=== PATIENT | female | born 1950 | race Caucasian/White ===

== ENCOUNTER 2018-04-06 12:15 | Inpatient (IN) ==
[2018-04-06 12:28] LABS: Baso % (Auto) 0.3 % (0.0-2.0); Eos % (Auto) 0.8 % (0.0-4.0); Hematocrit 38.5 % (35.0-46.0); Hemoglobin 12.3 gm/dL (11.6-15.3); Lymph % (Auto) 35.5 % (9.0-44.0); Mean Corpuscular Hemoglobin 29.8 pg (27.0-34.0); Mean Corpuscular Volume 92.9 fL (80.0-100.0); Mean Platelet Volume 7.8 fL (7.0-11.0); Mono # (Auto) 0.3 th/mm3 (0.0-0.9); Mono % (Auto) 5.5 % (0.0-8.0); Neut # (Auto) 3.2 th/mm3 (1.8-7.7); Neut % (Auto) 57.9 % (16.0-70.0); Platelet Count 149 th/mm3 (150-450); Red Blood Count 4.14 mil/mm3 (4.00-5.30); Red Cell Distribution Width 11.8 % (11.6-17.2); White Blood Count 5.5 th/mm3 (4.0-11.0)
--- NOTE | 2018-04-06 12:35 | CT ---
EXAM DATE: 04/06/2018 12:25 PM EST AGE/SEX: 67 years / Female INDICATIONS: Stroke alert. Left facial droop. CLINICAL DATA: This is the patient's initial encounter. Patient reports that signs and symptoms have been present for 1 day and indicates a pain score of 0/10. MEDICAL/SURGICAL HISTORY: Cerebrovascular disease. None. RADIATION DOSE: 56.12 CTDI (mGy) COMPARISON: No prior exams available for comparison. TECHNIQUE: CT of the head without contrast. Using automated exposure control and adjustment of the mA and/or kV according to patient size, radiation dose was kept as low as reasonably achievable to ob tain optimal diagnostic quality images. DICOM format image data is available electronically for revi ew and comparison. FINDINGS: Cerebrum: The ventricles are normal for age. There is bilateral cortical atrophy. No evidence of mid line shift, mass lesion, hemorrhage or acute infarction. No extraaxial fluid collections are seen. T here is some encephalomalacia with some cytotoxic edema in the white matter tracts involving the righ t frontal lobe and right mid to right posterior cerebral vertex suggestive of either a subacute to ol d infarct. There are no prior studies for comparison. Posterior Fossa: The cerebellum and brainstem are intact. The 4th ventricle is midline. The cerebe llopontine angle is unremarkable. Extracranial: The visualized portion of the orbits is intact. Skull: The calvaria is intact. No evidence of skull fracture. CONCLUSION: 1. No focal or acute intracranial hemorrhage. 2. There is some encephalomalacia with some cytotoxic edema in the white matter tracts involving the right frontal lobe and right mid to right posterior cerebral vertex suggestive of a subacute to poss ibly old infarct. There are no prior studies for comparison. Recommend MRI of the brain with and with out contrast for further evaluation. Report was called by Dr. Gandara to Dr. Toney at 12:31 PM Electronically signed by: Benjamín Gandara MD Board Certified Radiologist 04/06/2018 12:34 PM EST
[2018-04-06 12:36] LABS: Chloride 106 meq/L (98-107); Potassium 3.9 meq/L (3.5-5.1); Sodium 141 meq/L (136-145)
[2018-04-06 12:38] LABS: Calcium 8.8 mg/dL (8.5-10.1)
--- NOTE | 2018-04-06 12:38 | ED ---
HPI General Chief complaint: Stroke Alert Stated complaint: Neuro symptoms Time Seen by Provider: 04/06/18 12:55 Source: patient Mode of arrival: EMS Limitations: no limitations History of Present Illness HPI narrative: This 67-year-old female is transported by [facility] as a stroke alert. She resides in a longterm and is noted to have some weakness of the left side of her face and reportedly some trouble speaking. She has a history of a previous stroke in November 2017. The previous stroke occurred when she was living in [place]. The left arm and the left leg were affected. She has been residing in a assisted living facility in [place] since January. She is not able to ambulate or use her left arm. She does go for physical therapy twice a week. She had a hysterectomy at the age of 34 and had been on hormone replacement therapy. She developed a pulmonary embolus and had been on Coumadin. She was recently changed to Xarelto and has been on Xarelto daily. About a year ago she was having some trouble driving and being very forgetful and has apparently been diagnosed with dementia. The patient herself denies any pain. Related Data Home Medications Medication Instructions Recorded Confirmed aspirin 81 mg PO DAILY 04/06/18 04/06/18 escitalopram oxalate 5 mg PO DAILY 04/06/18 04/06/18 memantine 10 mg PO BID 04/06/18 04/06/18 polyethylene glycol 3350 17 g PO DAILY 04/06/18 04/06/18 pravastatin 80 mg PO DAILY 04/06/18 04/06/18 rivaroxaban [Xarelto] 20 mg PO QPM 04/06/18 04/06/18 Allergies Allergy/AdvReac Type Severity Reaction Status Date / Time No Known Allergies Allergy Verified 04/06/18 12:19 Review of Systems ROS: all other systems reviewed are negative [facility] Family History Family History Other Osteoarthritis Social History Social History Substance History: No History of Abuse Second Hand Smoke Exposure: No Smoking Status: Never smoker How Often Do You Have a Drink Containing Alcohol: Never Recent Travel in [facility] within the Last 8 Weeks: No Recent Out of Country Travel within the Last 8 Weeks: No Exam Narrative Exam Narrative: GENERAL: Well-developed female SKIN: Focused skin assessment warm/dry. HEAD: Atraumatic. Normocephalic. EYES: Pupils equal and round. No scleral icterus. No injection or drainage. ENT: No nasal bleeding or discharge. Mucous membranes pink and moist. NECK: Trachea midline. No JVD. CARDIOVASCULAR: Regular rate and rhythm. No murmur appreciated. RESPIRATORY: No accessory muscle use. Clear to auscultation. Breath sounds equal bilaterally. GASTROINTESTINAL: Abdomen soft, non-tender, nondistended. Hepatic and splenic margins not palpable. MUSCULOSKELETAL: No obvious deformities. No clubbing. No cyanosis. No edema. NEUROLOGICAL: Awake and alert. There is drooping of the left side of the face. She is unable to lift the left arm against gravity. She is able to lift the left leg slightly against gravity but only for a few seconds. Strength on the right side seems normal. I do not find a visual field defect. Sensation appears intact PSYCHIATRIC: Appropriate mood and affect; insight and judgment normal. Course Initial Documented Vital Signs Temperature 97 F L 04/06/18 12:15 Pulse Rate 76 04/06/18 12:15 Respiratory Rate 20 04/06/18 12:15 Blood Pressure 111/59 L 04/06/18 12:15 Pulse Oximetry 97 04/06/18 12:15 Last Documented Vital Signs Temperature 97 F L 04/06/18 12:15 Pulse Rate 76 04/06/18 12:15 Respiratory Rate 20 04/06/18 12:15 Blood Pressure 111/59 L 04/06/18 12:15 Pulse Oximetry 98 04/06/18 12:48 Medical Decision Making MDM Narrative Medical decision making narrative: It appears that the new deficit is a left- sided facial weakness. At this time her speech appears clear. She is on aspirin and Xarelto so is not a candidate for TPA. CT scan does show some cytotoxic edema on the right side suggestive of subacute infarct. MR is recommended and has been ordered. CTA has been done and is negative for large vessel occlusion the patient will be admitted Medical Screen Exam Complete: Yes Emergency Medical Condition: Yes Differential Diagnosis Differential Diagnosis: Differential includes CVA, space-occupying lesion, cerebral hemorrhage Lab Data Result diagrams: 04/06/18 11:55 04/06/18 11:55 Lab Results 04/06/18 04/06/18 04/06/18 Range/Units 11:55 11:55 11:55 CBC w Diff Auto diff final WBC 5.5 (4.0-11.0) th/mm3 RBC 4.14 (4.00-5.30) mil/mm3 Hgb 12.3 (11.6-15.3) gm/dL Hct 38.5 (35.0-46.0) % MCV 92.9 (80.0-100.0) fL MCH 29.8 (27.0-34.0) pg MCHC 32.0 (32.0-36.0) % RDW 11.8 (11.6-17.2) % Plt Count 149 L (150-450) th/mm3 MPV 7.8 (7.0-11.0) fL Neut % (Auto) 57.9 (16.0-70.0) % Lymph % (Auto) 35.5 (9.0-44.0) % Lyon % (Auto) 5.5 (0.0-8.0) % Eos % (Auto) 0.8 (0.0-4.0) % Baso % (Auto) 0.3 (0.0-2.0) % Neut # (Auto) 3.2 (1.8-7.7) th/mm3 Lymph # (Auto) 2.0 (1.0-4.8) th/mm3 Lyon # (Auto) 0.3 (0.0-0.9) th/mm3 Eos # (Auto) 0.0 (0.0-0.4) th/mm3 Baso # (Auto) 0.0 (0.0-0.2) th/mm3 WBC Differential . Differential Comment . PT 11.0 (9.8-11.6) sec INR 1.1 Ratio APTT 33.4 H (23.4-31.7) sec Fibrinogen 327 (227-377) mg/dL Sodium 141 (136-145) meq/L Potassium 3.9 (3.5-5.1) meq/L Chloride 106 (98-107) meq/L Carbon Dioxide 26.4 (21.0-32.0) meq/L Anion Gap 9 (5-15) meq/L BUN 21 H (7-18) mg/dL Creatinine 1.30 H (0.50-1.00) mg/dL Estimated GFR 41 L (>89) mL/min Random Glucose 92 (74-106) mg/dL Calcium 8.8 (8.5-10.1) mg/dL Total Creatine Kinase 68 (26-192) U/L Troponin I Less than 0.02 L (0.02-0.05) ng/mL Ur Collection Type Urine Color (Yellw/Straw) Urine Clarity (Clear) Urine pH (5.0-8.5) Ur Specific Avalon (1.002-1.035) Urine Protein (Neg-Trace) mg/dL Urine Glucose (UA) (Negative) mg/dL Urine Ketones (Negative) mg/dL Urine Occult Blood (Negative) Urine Nitrate (Negative) Urine Bilirubin (Negative) Urine Urobilinogen (Less than 2) mg/dL Ur Leukocyte Esterase (Negative) Urine WBC (0-5) /hpf Urine Bacteria (None) /hpf Micro UA Comment Ur Microscopic Review Urine Culture Comments Urine Opiates Screen (Neg) Ur Barbiturates Screen (Neg) Ur Amphetamines Screen (Neg) U Benzodiazepines Scrn (Neg) Urine Cocaine Screen (Neg) U Cannabinoids Screen (Neg) 04/06/18 04/06/18 Range/Units 13:30 13:30 CBC w Diff WBC (4.0-11.0) th/mm3 RBC (4.00-5.30) mil/mm3 Hgb (11.6-15.3) gm/dL Hct (35.0-46.0) % MCV (80.0-100.0) fL MCH (27.0-34.0) pg MCHC (32.0-36.0) % RDW (11.6-17.2) % Plt Count (150-450) th/mm3 MPV (7.0-11.0) fL Neut % (Auto) (16.0-70.0) % Lymph % (Auto) (9.0-44.0) % Lyon % (Auto) (0.0-8.0) % Eos % (Auto) (0.0-4.0) % Baso % (Auto) (0.0-2.0) % Neut # (Auto) (1.8-7.7) th/mm3 Lymph # (Auto) (1.0-4.8) th/mm3 Lyon # (Auto) (0.0-0.9) th/mm3 Eos # (Auto) (0.0-0.4) th/mm3 Baso # (Auto) (0.0-0.2) th/mm3 WBC Differential Differential Comment PT (9.8-11.6) sec INR Ratio APTT (23.4-31.7) sec Fibrinogen (227-377) mg/dL Sodium (136-145) meq/L Potassium (3.5-5.1) meq/L Chloride (98-107) meq/L Carbon Dioxide (21.0-32.0) meq/L Anion Gap (5-15) meq/L BUN (7-18) mg/dL Creatinine (0.50-1.00) mg/dL Estimated GFR (>89) mL/min Random Glucose (74-106) mg/dL Calcium (8.5-10.1) mg/dL Total Creatine Kinase (26-192) U/L Troponin I (0.02-0.05) ng/mL Ur Collection Type Cath Urine Color Yellow (Yellw/Straw) Urine Clarity Clear (Clear) Urine pH 6.0 (5.0-8.5) Ur Specific Avalon Less/equal 1.005 (1.002-1.035) Urine Protein Negative (Neg-Trace) mg/dL Urine Glucose (UA) Negative (Negative) mg/dL Urine Ketones Negative (Negative) mg/dL Urine Occult Blood Negative (Negative) Urine Nitrate Positive H (Negative) Urine Bilirubin Negative (Negative) Urine Urobilinogen 0.2 (Less than 2) mg/dL Ur Leukocyte Esterase Trace H (Negative) Urine WBC 0-5 (0-5) /hpf Urine Bacteria Many H (None) /hpf Micro UA Comment Cath-culture ind Ur Microscopic Review Microscopic reviewed Urine Culture Comments Cath-cult indicated Urine Opiates Screen Neg (Neg) Ur Barbiturates Screen Neg (Neg) Ur Amphetamines Screen Neg (Neg) U Benzodiazepines Scrn Neg (Neg) Urine Cocaine Screen Neg (Neg) U Cannabinoids Screen Neg (Neg) Imaging Data Radiologist's impression: Head CT 04/06/18 12:20 CONCLUSION: 1. No focal or acute intracranial hemorrhage. 2. There is some encephalomalacia with some cytotoxic edema in the white matter tracts involving the right frontal lobe and right mid to right posterior cerebral vertex suggestive of a subacute to possibly old infarct. There are no prior studies for comparison. Recommend MRI of the brain with and without contrast for further evaluation. Report was called by Dr. Gandara to Dr. Toney at 12:31 PM Head MRI 04/06/18 12:38 CONCLUSION: 1. There is evidence of an acute infarction involving the mid to anterior right cerebral vertex measuring 3.3 x 2.6 cm. The acute infarction is surrounded by cytotoxic edema. 2. 5 mm area of restricted diffusion high along the right cerebral vertex indicating a small cortical infarct. 3. Evidence of an old infarct involving the right posterior parietal lobe. Head CTA 04/06/18 13:35 CONCLUSION: 1. Unremarkable CTA of the brain. Report was called by Dr. Gandara to Dr. Flores at 2:06 PM. Neck CTA 04/06/18 13:35 CONCLUSION: 1. Unremarkable CTA of the carotids. Report was called by Dr. Gandara to Dr. Flores at 2:20 PM. Discharge Plan Discharge Disposition Patient Disposition: ED Admit(ED Internal Use Only) Discharge Condition Condition: Fair Discharge Order Discharge Orders: ED Use Only Admit Order (Routine); Ordered 04/06/18 Ordered By: Pedro Grant Discharge Details Diagnosis: Acute CVA (cerebrovascular accident) Physicians Team ED Provider: Pedro Grant Primary Care Provider: UNKNOWN, Attending Provider: Conrad Fernandez Other Providers: Malik Mcclure Status ED Status: Admitted Patient
[2018-04-06 12:39] LABS: Anion Gap 9 meq/L (5-15); Blood Urea Nitrogen 21 mg/dL (7-18); Carbon Dioxide 26.4 meq/L (21.0-32.0); Glucose,Random 92 mg/dL (74-106)
[2018-04-06 12:42] LABS: Glomerular Filtration Rate 41 mL/min (>89)
[2018-04-06 12:43] LABS: Activated Partial Thrombo Time 33.4 sec (23.4-31.7); INR 1.1 Ratio
[2018-04-06 12:48] LABS: Creatine Kinase 68 U/L (26-192)
[2018-04-06] MEDS: Sod Chloride 0.9% Inj 1,000 ML IV.CONT SCH ×2 (13:19→15:49)
[2018-04-06] MEDS ORDERED: Acetaminophen 325 MG Tablet PO PRN (13:31)
--- NOTE | 2018-04-06 13:52 | P.HPIM ---
History of Present Illness Chief Complaint: Left Face Weakness History of Present Illness: Mrs. Sam is a 67-year-old female. At baseline she lives at an [facility]. She has a prior history of CVA with left-sided deficit. Today she came in due to an acute onset of left facial weakness which was not present the previous days. At baseline she is on Xarelto for history of pulmonary embolism. She complains of no headache. No nausea or vomiting. No vertigo. No diarrhea. No fever. No shortness of breath. No chest pain. No visual disturbances. CT scan of the brain shows evidence of right-sided cerebral edema, MRI recommended. Inpatient Certification Inpatient Certification: I certify that the inpatient services were ordered in accordance with Medicare regulations governing the order. This includes certification that hospital inpatient services are reasonable and necessary and in the case of services not specified as inpatient-only under 42 CFR 419.22(n), that they are appropriately provided as inpatient services in accordance to with the 2-midnight benchmark under 43 CFR 412.3(e) Estimated Total Length of Stay (Days): 3 Plans for Post Hospital Care: Not yet determined Review of Systems Constitutional: No fevers, no chills no night sweats, no fatigue, no weakness Eyes: No eye pain, no blurry vision, no loss of vision ENT: No sore throat, no ear pain, no rhinorrhea, left-sided face weakness Cardiovascular: No chest pain, no tachycardia, no palpitations, no syncope Respiratory: No wheezing, no cough, no shortness of breath Gastrointestinal: No abdominal pain, no black tarry stools, no bright red blood per rectum, no vomiting, no diarrhea Musculoskeletal: No joint pain, no muscle cramps, no stiffness Integumentary: No rash, no ulcers, no drainage Neurologic: No sensory loss, no loss of motor function, no dizziness Psychiatric: No behavioral changes, no hallucinations, no suicidal ideations [facility] Medical History Medical History Anxiety (Acute) CVA (cerebral vascular accident) (Acute) Dementia (Acute) H/O: hysterectomy (Acute) Hypotension (Acute) Left-sided weakness (Acute) Muscle weakness (Acute) Family History Family History Other Osteoarthritis Social History Social History Substance History: No History of Abuse Second Hand Smoke Exposure: No Smoking Status: Never smoker How Often Do You Have a Drink Containing Alcohol: Never Recent Travel in [facility] within the Last 8 Weeks: No Recent Out of Country Travel within the Last 8 Weeks: No Immunization History Tetanus Immunization: Unsure Medications and Allergies Allergies Allergy/AdvReac Type Severity Reaction Status Date / Time No Known Allergies Allergy Verified 04/06/18 12:19 Home Medications Medication Instructions Recorded Confirmed Type aspirin 81 mg PO DAILY 04/06/18 04/06/18 History escitalopram oxalate 5 mg PO DAILY 04/06/18 04/06/18 History memantine 10 mg PO BID 04/06/18 04/06/18 History polyethylene glycol 3350 17 g PO DAILY 04/06/18 04/06/18 History pravastatin 80 mg PO DAILY 04/06/18 04/06/18 History rivaroxaban [Xarelto] 20 mg PO QPM 04/06/18 04/06/18 History Active Medications: Active Medications Acetaminophen (Tylenol) 650 mg PO Q4H PRN PRN Reason: Temp > 100.4 Al Hydroxide/Mg Hydroxide (Milk Of Magnashish Liq) 30 ml PO Q12H PRN PRN Reason: Mild Constipation Sodium Chloride (Ns Inj) 1,000 mls @ 70 mls/hr IV.CONT .[id number] [facility] Last Admin: 04/06/18 13:19 Dose: 70 mls/hr Sodium Chloride (Ns Inj) 1,000 mls @ 80 mls/hr IV.CONT .[id number] [facility] Ondansetron HCl (Zofran Inj) 4 mg IV.PUSH Q6H PRN PRN Reason: NAUSEA OR VOMITING Sodium Chloride (Ns Flush) 2 ml IV.FLUSH BID [facility] Sodium Chloride (Ns Flush) 2 ml IV.FLUSH PRN PRN PRN Reason: FLUSH AFTER USING IV ACCESS Physical Exam Vital signs: Vital Signs 04/06/18 12:15 04/06/18 12:48 Temperature 97 F L Pulse Rate 76 Respiratory Rate 20 Blood Pressure 111/59 L Pulse Oximetry 97 98 Intake & Output 04/05/18 04/06/18 04/06/18 18:59 06:59 18:59 Weight 53.8 kg Narrative: GENERAL: NAD, A&Ox3 HEAD: Normocephalic. NECK: Supple, trachea midline. No lymphadenopathy. EYES: No scleral icterus. No injection or drainage. CARDIOVASCULAR: Regular rate and rhythm without murmurs, gallops, or rubs. RESPIRATORY: Breath sounds equal bilaterally. No accessory muscle use. GASTROINTESTINAL: Abdomen soft, non-tender, nondistended. MUSCULOSKELETAL: No cyanosis, or edema. SKIN: Warm and dry. NEURO: Partial left-sided hemiplegia. Left face droop. Results Labs CBC & Chem 7: 04/06/18 11:55 04/06/18 11:[address] 04/06/18 12:20 CONCLUSION: 1. No focal or acute intracranial hemorrhage. 2. There is some encephalomalacia with some cytotoxic edema in the white matter tracts involving the right frontal lobe and right mid to right posterior cerebral vertex suggestive of a subacute to possibly old infarct. There are no prior studies for comparison. Recommend MRI of the brain with and without contrast for further evaluation. Report was called by Dr. Gandara to Dr. Toney at 12:31 PM Shannon VTE Risk Assessment Caprini VTE Risk Assessment: Moderate/High Risk (score >= 2) Caprini Risk Assessment Model: Point Value = 1 Point Value = 2 Point Value = 3 Point Value = 5 Age 41-60 Minor surgery BMI > 25 kg/m2 Swollen legs Varicose veins or History of unexplained or recurrent spontaneous Oral contraceptives or hormone replacement Sepsis (< 1 month) Serious lung disease, including pneumonia (< 1 month) Abnormal pulmonary function Acute myocardial infarction Congestive heart failure (< 1 month) History of inflammatory bowel disease Medical patient at bed rest Age 61-74 Arthroscopic surgery Major open surgery (> 45 min) Laparoscopic surgery (> 45 min) Malignancy Confined to bed (> 72 hours) Immobilizing plaster cast Central venous access Age >= 75 History of VTE Family history of VTE Factor V Leiden Prothrombin [id number] Lupus anticoagulant Anticardiolipin antibodies Elevated serum homocysteine Heparin-induced thrombocytopenia Other congenital or acquired thrombophilia Stroke (< 1 month) Elective arthroplasty Hip, pelvis, or leg fracture Acute spinal cord injury (< 1 month) Prophylaxis Regimen: Total Risk Factor Score Risk Level Prophylaxis Regimen 0-1 Low Early ambulation 2 Moderate Order ONE of the following: *Sequential Compression Device (SCD) *Heparin 5000 units SQ BID 3-4 Higher Order ONE of the following medications: *Heparin 5000 units SQ TID *Enoxaparin/Lovenox 40 mg SQ daily (WT < 150 kg, CrCl > 30 mL/min) *Enoxaparin/Lovenox 30 mg SQ daily (WT < 150 kg, CrCl > 10-29 mL/min) *Enoxaparin/Lovenox 30 mg SQ BID (WT < 150 kg, CrCl > 30 mL/min) AND/OR *Sequential Compression Device (SCD) 5 or more Highest Order ONE of the following medications: *Heparin 5000 units SQ TID (Preferred with Epidurals) *Enoxaparin/Lovenox 40 mg SQ daily (WT < 150 kg, CrCl > 30 mL/min) *Enoxaparin/Lovenox 30 mg SQ daily (WT < 150 kg, CrCl > 10-29 mL/min) *Enoxaparin/Lovenox 30 mg SQ BID (WT < 150 kg, CrCl > 30 mL/min) AND *Sequential Compression Device (SCD) Assessment and Plan Plan 67-year-old female admitted secondary to acute onset of left facial weakness with evidence for CVA on CT scan. Acute CVA Suspected based on edema on CT scan Neurology consulted Obtain MRI Follow neurologic status Speech therapy evaluation Swallow function evaluation Physical therapy Occupational Therapy Hypercoagulability History of pulmonary embolism No evidence of bleed/hemorrhage on CT of brain Xarelto continued Hyperlipidemia Continue present treatment Follow as an outpatient Dementia Memantine continued Supportive care DVT prophylaxis Xarelto
[2018-04-06 13:58] LABS: Bilirubin,Urine Negative (Negative); Clarity,Urine Clear (Clear); Color,Urine Yellow (Yellw/Straw); Glucose,Urine (UA) Negative (Negative); Leukocyte Esterase,Urine Trace (Negative); Nitrite,Urine Positive (Negative); Specific Gravity,Urine Less/Equal 1.005 (1.002-1.035); Urobilinogen,Urine 0.2 mg/dL (Less than 2)
--- NOTE | 2018-04-06 14:09 | CT ---
EXAM DATE: 04/06/2018 2:02 PM EST AGE/SEX: 67 years / Female INDICATIONS: Stroke alert. Left facial droop. CLINICAL DATA: This is the patient's initial encounter. Patient reports that signs and symptoms have been present for 1 day and indicates a pain score of 0/10. MEDICAL/SURGICAL HISTORY: Cerebrovascular disease. Hysterectomy. RADIATION DOSE: 42.78 CTDI (mGy) ; Combined studies COMPARISON: No prior exams available for comparison. TECHNIQUE: Volumetric scanning was performed using a multi-row detector CT scanner during bolus infu justo of 85 ml Visipaque 320 (iodixanol) nonionic water-soluble contrast as a cumulative dose for mul tiple exams. The data was post processed with a variety of visualization algorithms including full volume maximum intensity projection, multi-planar sliding thin slab reformation, curved planar reform ation, and surface rendering techniques. Using automated exposure control and adjustment of the mA a nd/or kV according to patient size, radiation dose was kept as low as reasonably achievable to obtain optimal diagnostic quality images. DICOM format image data is available electronically for review a nd comparison. FINDINGS: There is excellent visualization of the major intracranial arteries out to the second-order branch ve ssels. There is no evidence for aneurysm, vessel truncation or stenosis, and no evidence for vascula r malformation. There are bilateral patent posterior communicating arteries. CONCLUSION: 1. Unremarkable CTA of the brain. Report was called by Dr. Gandara to Dr. Flores at 2:06 PM. Electronically signed by: Benjamín Gandara MD Board Certified Radiologist 04/06/2018 2:08 PM EST
--- NOTE | 2018-04-06 14:10 | ECG ---
Date Performed: 04/06/2018 Time Performed: 12:48:21 PTAGE: 67 years EKG: Sinus rhythm LOW QRS VOLTAGE IN EXTREMITY LEADS BORDERLINE ECG NO PREVIOUS TRACING DOCTOR: Santiago Urbina Interpretating Date/Time 04/06/2018 14:10:20
[2018-04-06] MEDS ORDERED: Gadobutrol PF 7.5 MMOL/7.5 ML Vial (for RAD) IV.SIG ONE (14:19)
--- NOTE | 2018-04-06 14:24 | CT ---
EXAM DATE: 04/06/2018 2:14 PM EST AGE/SEX: 67 years / Female INDICATIONS: Stroke alert. Left facial droop. CLINICAL DATA: This is the patient's initial encounter. Patient reports that signs and symptoms have been present for 1 day and indicates a pain score of 0/10. MEDICAL/SURGICAL HISTORY: Cerebrovascular disease. Hysterectomy. RADIATION DOSE: 42.78 CTDI (mGy) COMPARISON: No prior exams available for comparison. TECHNIQUE: Volumetric scanning was performed using a multirow detector CT scanner during bolus infus ion of 85 ml Visipaque 320 (iodixanol) nonionic water-soluble contrast as a cumulative dose for mult iple exams. The data was postprocessed with a variety of visualization algorithms including full-vo lume maximum intensity projection, multiplanar sliding thin-slab reformation, curved-planar reformati on, and surface-rendering techniques. Using automated exposure control and adjustment of the mA and/ or kV according to patient size, radiation dose was kept as low as reasonably achievable to obtain op timal diagnostic quality images. DICOM format image data is available electronically for review and comparison. Percent stenosis is calculated using the diameter of the stenotic region over the diameter of the nor mal distal internal carotid artery. FINDINGS: Aortic Arch: There is a three-vessel origin of the great vessels from the aorta. No evidence of ost ial narrowing Right Carotid: The common carotid artery is intact. The carotid bulb has a normal configuration wit hout ulceration or narrowing. The internal carotid artery lumen is smooth without stenosis. The ext ernal carotid artery is intact. Left Carotid: The common carotid artery is intact. The carotid bulb has a normal configuration with out ulceration or narrowing. The internal carotid artery lumen is smooth without stenosis. The exte rnal carotid artery is intact. Vertebrals: The vertebral arteries are patent bilaterally. The left vertebral artery is dominant.. No stenotic lesions are seen. CONCLUSION: 1. Unremarkable CTA of the carotids. Report was called by Dr. Gandara to Dr. Flores at 2:20 PM. Electronically signed by: Benjamín Gandara MD Board Certified Radiologist 04/06/2018 2:23 PM EST
[2018-04-06 14:27] LABS: WBC,Urine 0-5 /hpf (0-5)
[2018-04-06 14:28] LABS: Bacteria,Urine Many /hpf
[2018-04-06 14:35] LABS: Amphetamine Screen,Urine Neg (Neg); Barbiturate Screen,Urine Neg (Neg); Cannabinoid Screen,Urine Neg (Neg); Cocaine Screen,Urine Neg (Neg)
--- NOTE | 2018-04-06 14:38 | MR ---
EXAM DATE: 04/06/2018 2:26 PM EST AGE/SEX: 67 years / Female INDICATIONS: Stroke. Left sided weakness. CLINICAL DATA: This is the patient's initial encounter. Patient reports that signs and symptoms have been present for 1 day and indicates a pain score of 8/10. MEDICAL/SURGICAL HISTORY: . Cancer behind the eyes. Hysterectomy. Eye sx. COMPARISON: [facility], CT STROKE ALERT HEAD WO CON, 04/06/2018. . TECHNIQUE: Multiplanar, multisequence examination of the brain was performed without and with 5 ml Ga davist (gadobutrol) contrast as a single exam dose. FINDINGS: Cerebrum: The ventricles are normal for age. No evidence of midline shift, mass lesion, hemorrhage. There is evidence of an acute infarct involving the mid to anterior right cerebral vertex. The area of restricted diffusion measures 3.3 x 2.6 cm. There is surrounding cytotoxic edema in this location characteristic of an acute infarct. There is evidence of an old infarct involving the right posterior parietal lobe. No extraaxial fluid collections are seen. The pituitary gland and suprasellar cister n are normal in configuration. White Matter: Moderate chronic white matter changes are noted bilaterally characteristic of ischemic demyelinization. There is cytotoxic edema surrounding the area of acute infarction on the right side . There is an old area of infarct involving the posterior right parietal lobe. Posterior Fossa: The cerebellum and brainstem are intact. The 4th ventricle is midline. The cerebel lopontine angle is unremarkable. The cerebellar tonsils are normal in position. Diffusion Imaging: There is evidence of restricted diffusion involving the mid to anterior right cer ebral vertex measuring 3.3 x 2.6 cm characteristic of an acute infarct. There is a 5 mm area of restr icted diffusion high along the right cerebral vertex indicating a small cortical infarct. These areas are surrounded by cytotoxic edema. Extracranial: The visualized portions of the orbits and paranasal sinuses are unremarkable. Post Contrast: No abnormal areas of parenchymal or dural enhancement. No evidence of blood-brain ba rrier breakdown. No enhancing mass occupying lesions. CONCLUSION: 1. There is evidence of an acute infarction involving the mid to anterior right cerebral vertex leopoldo uring 3.3 x 2.6 cm. The acute infarction is surrounded by cytotoxic edema. 2. 5 mm area of restricted diffusion high along the right cerebral vertex indicating a small cortica l infarct. 3. Evidence of an old infarct involving the right posterior parietal lobe. Electronically signed by: Benjamín Gandara MD Board Certified Radiologist 04/06/2018 2:36 PM EST
[2018-04-06 15:00] LABS: Opiate Screen,Urine Neg (Neg)
--- NOTE | 2018-04-06 18:59 | P.CONNEU ---
History of Present Illness Service: Neurology Primary Care Provider: UNKNOWN Chief Complaint: Left Face Weakness History of Present Illness: 67-year-old female with a history of previous right hemispheric stroke and left spastic hemiparesis admitted for recurrent stroke. Noted to have left facial weakness speech changes at her facility. Is on Xarelto. Therefore not IV TPA candidate. Patient states she lives alone close to [facility] for meals use a wheelchair to get around. States her brother lives close by. She has 2 cats but does not have any children. Denies any headache fever night sweats or chills or any head or neck trauma or any vision loss. Review of Systems All other systems reviewed negative except as stated in HPI PMFSH - History History Provided By: Patient - Medical History Medical History: Medical History (Last Reviewed 04/06/18 @ 14:05 by Crystal Montero [employer]eter, HAND CEMENTER) Anxiety CVA (cerebral vascular accident) Dementia H/O: hysterectomy Hypotension Left-sided weakness Muscle weakness - Family History Family History: Family History Other Osteoarthritis - Tobacco History Second Hand Smoke Exposure: No Tobacco Use In Past 30 Days: No Smoking Status: Never smoker - Alcohol History How Often Do You Have a Drink Containing Alcohol: Never - Substance Use History Substance History: No History of Abuse - Travel History Recent Travel in the [place] Within the Last 8 Weeks: No Recent Travel Out of the Country Within the Last 8 Weeks: No - Immunization History Tetanus Immunization: Unsure Hx Influenza Vaccine This Season: No Medications and Allergies Active Medications: Active Medications Acetaminophen (Tylenol) 650 mg PO Q4H PRN PRN Reason: Temp > 100.4 Al Hydroxide/Mg Hydroxide (Milk Of Magnashish Liq) 30 ml PO Q12H PRN PRN Reason: Mild Constipation Aspirin (Ecotrin) 81 mg PO DAILY [facility] Escitalopram Oxalate (Lexapro) 5 mg PO DAILY [facility] Sodium Chloride (Ns Inj) 1,000 mls @ 70 mls/hr IV.CONT .[id number] BAUDILIO Last Admin: 04/06/18 13:19 Dose: 70 mls/hr Sodium Chloride (Ns Inj) 1,000 mls @ 80 mls/hr IV.CONT .[id number] BAUDILIO Last Admin: 04/06/18 15:49 Dose: 80 mls/hr Influenza Virus Vaccine (Fluarix (Quad) Vaccine Inj) 0.5 ml IM .ONCE ONE Stop: 04/06/18 20:01 Memantine (Namenda) 10 mg PO BID [facility]UD[facility]IO Miscellaneous (Pill Splitter) 1 each OTHER UNSCH PRN PRN Reason: PILL SPLITTING Ondansetron HCl (Zofran Inj) 4 mg IV.PUSH Q6H PRN PRN Reason: NAUSEA OR VOMITING Polyethylene Glycol (Miralax) 17 gm PO DAILY [facility]UD[facility] Pravastatin Sodium (Pravachol) 80 mg PO DAILY [facility]UD[facility] Rivaroxaban (Xarelto) 20 mg PO HS [facility] Sodium Chloride (Ns Flush) 2 ml IV.FLUSH BID BAUDILIO Sodium Chloride (Ns Flush) 2 ml IV.FLUSH PRN PRN PRN Reason: FLUSH AFTER USING IV ACCESS Allergies Allergy/AdvReac Type Severity Reaction Status Date / Time No Known Allergies Allergy Verified 04/06/18 12:19 Home Medications Medication Instructions Recorded Confirmed Type aspirin 81 mg PO DAILY 04/06/18 04/06/18 History escitalopram oxalate 5 mg PO DAILY 04/06/18 04/06/18 History memantine 10 mg PO BID 04/06/18 04/06/18 History polyethylene glycol 3350 17 g PO DAILY 04/06/18 04/06/18 History pravastatin 80 mg PO DAILY 04/06/18 04/06/18 History rivaroxaban [Xarelto] 20 mg PO QPM 04/06/18 04/06/18 History Exam Vital signs: Vital Signs 04/06/18 12:15 04/06/18 12:48 04/06/18 16:00 Temperature 97 F L 97.9 F Pulse Rate 76 69 Respiratory Rate 20 14 Blood Pressure 111/59 L 136/69 Pulse Oximetry 97 98 98 Intake & Output 04/05/18 04/06/18 04/06/18 18:59 06:59 18:59 Intake Total 300 / 300 Balance 300 / 300 Weight 53.8 kg Intake: Oral 300 / 300 Narrative: GENERAL: in NAD, SKIN: Warm and dry. HEAD: Atraumatic. Normocephalic. EYES: Pupils equal and round. No scleral icterus. ENT: No nasal bleeding or discharge. Mucous membranes pink and moist. NECK: Trachea midline. No JVD. CARDIOVASCULAR: Regular rate and rhythm. RESPIRATORY: No accessory muscle use. GASTROINTESTINAL: Abdomen soft, non-tender, nondistended. MUSCULOSKELETAL: Extremities without clubbing, cyanosis, or edema. No obvious deformities. NEUROLOGICAL: Awake and alert. Oriented 2-3, knew the name of the current president, follows once a motor request, articulate speech, visual colon full left lower facial weakness. Left spastic hemiparesis left upper extremity to 3 out of 5, left lower extremity 2-3 out of 5 able to slightly raise to gravity PSYCHIATRIC: Appropriate mood and affect; insight and judgment normal. - Constitutional no acute distress - Routine HEENT Exam Head: Present: normocephalic Eye: Present: EOMI Results - Labs CBC & Chem 7: 04/06/18 11:55 04/06/18 11:55 Labs: Laboratory Results - last 24 hr 04/06/18 04/06/18 04/06/18 11:55 11:55 11:55 CBC w Diff Auto diff final WBC 5.5 RBC 4.14 Hgb 12.3 Hct 38.5 MCV 92.9 MCH 29.8 MCHC 32.0 RDW 11.8 Plt Count 149 L MPV 7.8 Neut % (Auto) 57.9 Lymph % (Auto) 35.5 [place] % (Auto) 5.5 Eos % (Auto) 0.8 Baso % (Auto) 0.3 Neut # (Auto) 3.2 Lymph # (Auto) 2.0 [place] # (Auto) 0.3 Eos # (Auto) 0.0 Baso # (Auto) 0.0 WBC Differential . Differential Comment . PT 11.0 INR 1.1 APTT 33.4 H Fibrinogen 327 Sodium 141 Potassium 3.9 Chloride 106 Carbon Dioxide 26.4 Anion Gap 9 BUN 21 H Creatinine 1.30 H Estimated GFR 41 L Random Glucose 92 Calcium 8.8 Total Creatine Kinase 68 Troponin I Less than 0.02 L Ur Collection Type Urine Color Urine Clarity Urine pH Ur Specific [place] Urine Protein Urine Glucose (UA) Urine Ketones Urine Occult Blood Urine Nitrate Urine Bilirubin Urine Urobilinogen Ur Leukocyte Esterase Urine WBC Urine Bacteria Micro UA Comment Ur Microscopic Review Urine Culture Comments Urine Opiates Screen Ur Barbiturates Screen Ur Amphetamines Screen U Benzodiazepines Scrn Urine Cocaine Screen U Cannabinoids Screen Blood Type Antibody Screen Ab Screen Tube Method Direct Antiglob Test 04/06/18 04/06/18 04/06/18 13:13 13:30 13:30 CBC w Diff WBC RBC Hgb Hct MCV MCH MCHC RDW Plt Count MPV Neut % (Auto) Lymph % (Auto) [place] % (Auto) Eos % (Auto) Baso % (Auto) Neut # (Auto) Lymph # (Auto) [place] # (Auto) Eos # (Auto) Baso # (Auto) WBC Differential Differential Comment PT INR APTT Fibrinogen Sodium Potassium Chloride Carbon Dioxide Anion Gap BUN Creatinine Estimated GFR Random Glucose Calcium Total Creatine Kinase Troponin I Ur Collection Type Cath Urine Color Yellow Urine Clarity Clear Urine pH 6.0 Ur Specific [place] Less/equal 1.005 Urine Protein Negative Urine Glucose (UA) Negative Urine Ketones Negative Urine Occult Blood Negative Urine Nitrate Positive H Urine Bilirubin Negative Urine Urobilinogen 0.2 Ur Leukocyte Esterase Trace H Urine WBC 0-5 Urine Bacteria Many H Micro UA Comment Cath-culture ind Ur Microscopic Review Microscopic reviewed Urine Culture Comments Cath-cult indicated Urine Opiates Screen Neg Ur Barbiturates Screen Neg Ur Amphetamines Screen Neg U Benzodiazepines Scrn Neg Urine Cocaine Screen Neg U Cannabinoids Screen Neg Blood Type B Positive Antibody Screen Positive Ab Screen Tube Method Positive H Direct Antiglob Test Negative - Imaging Impressions Head CT 04/06/18 12:20 CONCLUSION: 1. No focal or acute intracranial hemorrhage. 2. There is some encephalomalacia with some cytotoxic edema in the white matter tracts involving the right frontal lobe and right mid to right posterior cerebral vertex suggestive of a subacute to possibly old infarct. There are no prior studies for comparison. Recommend MRI of the brain with and without contrast for further evaluation. Report was called by Dr. Gandara to Dr. Toney at 12:31 PM Head MRI 04/06/18 12:38 CONCLUSION: 1. There is evidence of an acute infarction involving the mid to anterior right cerebral vertex measuring 3.3 x 2.6 cm. The acute infarction is surrounded by cytotoxic edema. 2. 5 mm area of restricted diffusion high along the right cerebral vertex indicating a small cortical infarct. 3. Evidence of an old infarct involving the right posterior parietal lobe. Head CTA 04/06/18 13:35 CONCLUSION: 1. Unremarkable CTA of the brain. Report was called by Dr. Gandara to Dr. Flores at 2:06 PM. Neck CTA 04/06/18 13:35 CONCLUSION: 1. Unremarkable CTA of the carotids. Report was called by Dr. Gandara to Dr. Flores at 2:20 PM. Review/Management - Diagnosis (1) Acute right MCA stroke Code(s): I63.511 - Cerebral infarction due to unspecified occlusion or stenosis of right middle cerebral artery Status: Acute Current Visit: Yes (2) Pulmonary embolus Code(s): I26.99 - Other pulmonary embolism without acute cor pulmonale Status : Acute Current Visit: Yes (3) Anxiety Code(s): F41.9 - Anxiety disorder, unspecified Status: Acute Current Visit: Yes (4) Impairment of cognitive function Code(s): R41.89 - Other symptoms and signs involving cognitive functions and awareness Status: Acute Current Visit: Yes (5) Chronic ischemic right MCA stroke Code(s): I69.30 - Unspecified sequelae of cerebral infarction Status: Acute Current Visit: Yes - Review/Management Plan: Acute on chronic right hemispheric stroke Moderate size previous right MCA stroke in addition to chronic left medial temporal region infarct. CT brain carotids negative for any vaso-occlusive disease. Therefore probably an embolic etiology. Recurrent stroke on Xarelto Recommendations Change oral anticoagulant to Pradaxa or Eliquis or Coumadin. Adjust for renal clearance Therapy Follow-up 2D echo Follow-up lipid panel Discharge planning once medically cleared
[2018-04-06] MEDS ORDERED: Influenza (Quadrivalent) Vaccine 0.5 ML Syringe IM ONE (20:00)
[2018-04-06] MEDS ORDERED: Rivaroxaban 20 MG Tablet PO SCH (21:00)
[2018-04-07] MEDS: Sod Chloride 0.9% Inj 1,000 ML IV.CONT SCH ×4 (02:16→16:56)
[2018-04-07 06:42] LABS: Baso % (Auto) 0.1 % (0.0-2.0); Eos % (Auto) 0.7 % (0.0-4.0); Hematocrit 38.2 % (35.0-46.0); Hemoglobin 12.4 gm/dL (11.6-15.3); Lymph # (Auto) 1.9 th/mm3 (1.0-4.8); Lymph % (Auto) 28.9 % (9.0-44.0); Mean Corpuscular HGB Conc 32.5 % (32.0-36.0); Mean Corpuscular Volume 92.4 fL (80.0-100.0); Mean Platelet Volume 7.7 fL (7.0-11.0); Mono # (Auto) 0.3 th/mm3 (0.0-0.9); Mono % (Auto) 4.4 % (0.0-8.0); Neut # (Auto) 4.4 th/mm3 (1.8-7.7); Neut % (Auto) 65.9 % (16.0-70.0); Platelet Count 140 th/mm3 (150-450); Red Blood Count 4.14 mil/mm3 (4.00-5.30); Red Cell Distribution Width 11.5 % (11.6-17.2); White Blood Count 6.6 th/mm3 (4.0-11.0)
[2018-04-07 07:00] LABS: Chloride 109 meq/L (98-107); Potassium 4.1 meq/L (3.5-5.1); Sodium 143 meq/L (136-145)
[2018-04-07 07:05] LABS: Calcium 8.9 mg/dL (8.5-10.1)
[2018-04-07 07:06] LABS: Albumin 3.5 g/dL (3.4-5.0); Anion Gap 4 meq/L (5-15); Blood Urea Nitrogen 18 mg/dL (7-18); Carbon Dioxide 29.7 meq/L (21.0-32.0); Glucose,Random 94 mg/dL (74-106)
[2018-04-07 07:09] LABS: Alanine Aminotransferase 13 U/L (10-53); Aspartate Aminotransferase 17 U/L (15-37); Glomerular Filtration Rate 60 mL/min (>89)
[2018-04-07 07:11] LABS: Total Protein 6.2 g/dL (6.4-8.2)
[2018-04-07 07:12] LABS: Alkaline Phosphatase 103 U/L (45-117)
--- NOTE | 2018-04-07 08:58 | MB ---
cc: Ravindra Flores MD, PhD DATE: 04/07/2018 TELENEUROLOGY CONSULT HISTORY OF PRESENT ILLNESS: This is a 67-year-old female who has a history of previous stroke resulting in a left hemiplegia, who [facility]. Shortly before presentation to the hospital, she developed left facial weakness with some difficulty talking with slurred speech. She has a previous stroke while up in [place], causing severe left arm and left leg weakness, which has not changed. The only new finding was left facial weakness and slurred speech. The patient has been on Xarelto daily and took her last dose the evening before admission. She presented to the [facility] as a stroke alert. I evaluated the patient via the teleneurology system. MEDICATIONS ON ADMISSION: Xarelto 20 mg daily, pravastatin 80 mg daily, polyethylene glycol, memantine 10 mg b.i.d., Lexapro 5 mg daily, aspirin 81 mg daily. PHYSICAL EXAMINATION: Conducted via the teleneurology system: VITAL SIGNS: Blood pressure was 124/68, pulse 70, respirations 20. She was afebrile. NEUROLOGIC: Higher cortical function shows the patient to be alert. Her speech appeared to be within normal limits, although she complained it was dysarthric. Cranial nerves reveal a left upper motor neuron seventh palsy, but otherwise cranial nerves were intact. Motor exam: She had a dense left hemiparesis with essentially complete weakness of the left arm and left leg. She was unable to lift these off the bed, but was able to briskly move the right side well. Her sensation was diminished in the left thigh to soft touch. DIAGNOSTIC DATA: CT scan of the brain reveals a chronic right of subacute with cytotoxic edema. present. CT scan of the brain was obtained and was within normal limits. CT angiogram of the neck was also obtained and also showed a sign of significant carotid artery stenosis. LABORATORY DATA: Serum glucose was 92. Sodium 141, potassium 3.9, chloride 106, CO2 26, BUN 20, creatinine 1.3, GFR 41, calcium 8.8. CBC: White count 5500, hemoglobin 12.3, hematocrit 38.5, platelet count 149,000. PT 11, INR 1.1, aPTT 33.4. IMPRESSION: New acute right middle cerebral artery distribution stroke superimposed on an old right middle cerebral artery infarction. The patient is not a candidate for IV TPA because she was on Xarelto. Further evaluation with CT angiography did not reveal any evidence for large vessel occlusion, so she was not a candidate for intervention. Recommend further evaluation with , close neuro checks and close blood pressure monitoring. I also recommend general neurology consultation for further recommendations. Ravindra Flores MD, PhD DESTINY/madeline/rosio , 05:16 AM , 05:27 AM
[2018-04-07] MEDS: Escitalopram 10 MG Tablet PO SCH (09:41)
[2018-04-07] MEDS: Polyethylene Glycol 3350 17 GM Packet PO SCH (09:44)
[2018-04-07 10:46] LABS: Chol/HDL Ratio 2.08 Ratio; HDL Cholesterol 65.3 mg/dL (40.0-60.0)
--- NOTE | 2018-04-07 11:28 | ECHRPT ---
Indication: Atrial Fib and Flutter CONCLUSIONS Normal left ventricular size. Wall thickness is measured at the upper limits of normal. The left ventricular systolic function is normal with an estimated ejection fraction in the range of 55-60%. No regional wall motion abnormalities are present. Moderate mitral annular calcification. Trace mitral valve regurgitation. There is trace to mild tricuspid valve regurgitation. The estimated pulmonary arterial pressure is 33 mmHg. BP: / HR: Rhythm: MEASUREMENTS (Male / Female) Normal Values Technical Quality:Fair 2D ECHO LV Diastolic Diameter PLAX 4.5 cm 4.2 - 5.9 / 3.9 - 5.3 cm LV Systolic Diameter PLAX 3.2 cm IVS Diastolic Thickness 0.9 cm 0.6 - 1.0 / 0.6 - 0.9 cm LVPW Diastolic Thickness 0.8 cm 0.6 - 1.0 / 0.6 - 0.9 cm LV Relative Wall Thickness 0.4 RV Internal Dim ED PLAX 2.1 cm LVOT Diameter 1.8 cm Aortic Root Diameter 2.7 cm LA Systolic Diameter LX 3.0 cm 3.0 - 4.0 / 2.7 - 3.8 cm DOPPLER AV Peak Velocity 132.0 cm/s AV Peak Gradient 7.0 mmHg LVOT Peak Velocity 76.5 cm/s LVOT Peak Gradient 2.3 mmHg AV Area Cont Eq pk 1.5 cm Mitral E Point Velocity 77.0 cm/s Mitral A Point Velocity 94.8 cm/s Mitral E to A Ratio 0.8 LV E' Lateral Velocity 9.9 cm/s Mitral E to LV E' Lateral Ratio 7.7 LV E' Septal Velocity 8.5 cm/s Mitral E to LV E' Septal Ratio 9.1 TR Peak Velocity 242.0 cm/s TR Peak Gradient 23.4 mmHg Right Atrial Pressure 10.0 mmHg Pulmonary Artery Systolic Pressu 33.4 mmHg Right Ventricular Systolic Press 33.4 mmHg PV Peak Velocity 89.6 cm/s PV Peak Gradient 3.2 mmHg FINDINGS LEFT VENTRICLE Normal left ventricular size. Wall thickness is measured at the upper limits of normal. The left ventricular systolic function is normal with an estimated ejection fraction in the range of 55-60%. No regional wall motion abnormalities are present. RIGHT VENTRICLE Normal right ventricular size and systolic function. LEFT ATRIUM The left atrial size is normal. RIGHT ATRIUM The right atrial size is normal. ATRIAL SEPTUM Normal atrial septal thickness without atrial level shunting by limited color doppler interrogation. AORTA The aortic root and proximal ascending aorta are normal in size on limited imaging. MITRAL VALVE Moderate mitral annular calcification. Trace mitral valve regurgitation. AORTIC VALVE Trileaflet aortic valve. No aortic valve stenosis or regurgitation. TRICUSPID VALVE There is trace to mild tricuspid valve regurgitation. The estimated pulmonary arterial pressure is 33 mmHg. PULMONARY VALVE No pulmonary valve regurgitation or stenosis. VESSELS The inferior vena cava is normal in size. PERICARDIUM No pericardial effusion. Andrew Tovar MD (Electronically Signed) Final Date:07 April 2018 11:26
[2018-04-07 12:28] LABS: Hemoglobin A1c 5.1 % (4.3-6.0)
--- NOTE | 2018-04-07 13:04 | P.PNIM ---
Subjective Interval history: Patient positive for acute CVA on the right. She is noticing some left-sided weakness which is worse than her baseline left-sided weakness. No new complaints. Physical Exam Vital signs: Vital Signs 04/06/18 16:00 04/06/18 20:00 04/06/18 20:05 Temperature 97.9 F 98.1 F Pulse Rate 69 62 66 Respiratory Rate 14 20 Blood Pressure 136/69 109/60 Pulse Oximetry 98 97 04/06/18 20:15 04/07/18 00:00 04/07/18 03:45 Temperature 97.4 F L Pulse Rate 77 68 Respiratory Rate 20 Blood Pressure 124/68 Pulse Oximetry 97 96 04/07/18 04:00 Temperature 98.3 F Pulse Rate 68 Respiratory Rate 20 Blood Pressure 129/73 Pulse Oximetry 94 L Intake & Output 04/06/18 04/07/18 04/07/18 18:59 06:59 18:59 Intake Total 780 / 780 1060 / 1060 Balance 780 / 780 1060 / 1060 Weight 53.8 kg 53.6 kg Intake: IV 1000 / 1000 NS Inj 1,000 ML @ 80 mls/hr IV. 1000 / 1000 CONT .[id number] BAUDILIO Rx#: [id number] Oral 780 / 780 60 / 60 Other: # Voids 3 # Incontinent Voids 1 # Bowel Movements 0 1 Narrative: GENERAL: NAD, A&Ox3 HEAD: Normocephalic. NECK: Supple, trachea midline. No lymphadenopathy. EYES: No scleral icterus. No injection or drainage. CARDIOVASCULAR: Regular rate and rhythm without murmurs, gallops, or rubs. RESPIRATORY: Breath sounds equal bilaterally. No accessory muscle use. GASTROINTESTINAL: Abdomen soft, non-tender, nondistended. MUSCULOSKELETAL: No cyanosis, or edema. SKIN: Warm and dry. NEURO: Partial left-sided hemiplegia. Left face droop. Results Labs CBC & Chem 7: 04/07/18 06:15 04/07/18 06:10 Labs: Microbiology 04/06/18 13:30 Clean Catch Urine Urine Culture - Preliminary gram negative rods Imaging Imaging: Impressions Head MRI 04/06/18 12:38 CONCLUSION: 1. There is evidence of an acute infarction involving the mid to anterior right cerebral vertex measuring 3.3 x 2.6 cm. The acute infarction is surrounded by cytotoxic edema. 2. 5 mm area of restricted diffusion high along the right cerebral vertex indicating a small cortical infarct. 3. Evidence of an old infarct involving the right posterior parietal lobe. Head CTA 04/06/18 13:35 CONCLUSION: 1. Unremarkable CTA of the brain. Report was called by Dr. Gandara to Dr. Flores at 2:06 PM. Neck CTA 04/06/18 13:35 CONCLUSION: 1. Unremarkable CTA of the carotids. Report was called by Dr. Gandara to Dr. Flores at 2:20 PM. Assessment and Plan (1) Acute right MCA stroke: Code(s): I63.511 - Cerebral infarction due to unspecified occlusion or stenosis of right middle cerebral artery Status: Acute (2) Pulmonary embolus: Code(s): I26.99 - Other pulmonary embolism without acute cor pulmonale Status: Acute (3) Anxiety: Code(s): F41.9 - Anxiety disorder, unspecified Status: Acute (4) Impairment of cognitive function: Code(s): R41.89 - Other symptoms and signs involving cognitive functions and awareness Status: Acute (5) Chronic ischemic right MCA stroke: Code(s): I69.30 - Unspecified sequelae of cerebral infarction Status: Acute Plan 67-year-old female admitted secondary to acute onset of left facial weakness with evidence for CVA on CT scan. Continue physical therapy. Echocardiogram pending. Lipid profile pending. Patient being transition to Eliquis as a new treatment to replace Xarelto. Continue daily aspirin. Acute CVA Suspected based on edema on CT scan Neurology consulted Obtain MRI Follow neurologic status Speech therapy evaluation Swallow function evaluation Physical therapy Occupational Therapy Hypercoagulability History of pulmonary embolism No evidence of bleed/hemorrhage on CT of brain Xarelto continued Hyperlipidemia Continue present treatment Follow as an outpatient Dementia Memantine continued Supportive care DVT prophylaxis Xarelto Progress Note: Quality VTE Deep Vein Thrombosis/Pulmonary Embolism Present on Admission: No _ (1) Pulmonary embolus Qualifiers: Pulmonary embolism type: Chronicity: Acute cor pulmonale presence:
--- NOTE | 2018-04-07 13:13 | P.PNNEU ---
Subjective Subjective Comments: No cp, no dyspnea, no moyer, , no vision loss, no acute events. Brother bedside Active Medications: Active Medications Acetaminophen (Tylenol) 650 mg PO Q4H PRN PRN Reason: Temp > 100.4 Al Hydroxide/Mg Hydroxide (Milk Of Pete Liq) 30 ml PO Q12H PRN PRN Reason: Mild Constipation Apixaban (Eliquis) 5 mg PO BID [facility] Aspirin (Ecotrin) 81 mg PO DAILY [facility] Last Admin: 04/07/18 09:41 Dose: 81 mg Escitalopram Oxalate (Lexapro) 5 mg PO DAILY [facility] Last Admin: 04/07/18 09:41 Dose: 5 mg Sodium Chloride (Ns Inj) 1,000 mls @ 70 mls/hr IV.CONT .[id number] [facility] Last Infusion: 04/07/18 02:17 Dose: Infused Sodium Chloride (Ns Inj) 1,000 mls @ 80 mls/hr IV.CONT .[id number] [facility] Last Admin: 04/07/18 05:16 Dose: 80 mls/hr Memantine (Namenda) 10 mg PO BID [facility] Last Admin: 04/07/18 09:44 Dose: 10 mg Miscellaneous (Pill Splitter) 1 each OTHER UNSCH PRN PRN Reason: PILL SPLITTING Ondansetron HCl (Zofran Inj) 4 mg IV.PUSH Q6H PRN PRN Reason: NAUSEA OR VOMITING Polyethylene Glycol (Miralax) 17 gm PO DAILY [facility] Last Admin: 04/07/18 09:44 Dose: Not Given Pravastatin Sodium (Pravachol) 80 mg PO DAILY [facility] Last Admin: 04/07/18 09:44 Dose: 80 mg Sodium Chloride (Ns Flush) 2 ml IV.FLUSH BID [facility] Last Admin: 04/07/18 09:44 Dose: Not Given Sodium Chloride (Ns Flush) 2 ml IV.FLUSH PRN PRN PRN Reason: FLUSH AFTER USING IV ACCESS Allergies/Adverse Reactions: Allergies Allergy/AdvReac Type Severity Reaction Status Date / Time No Known Allergies Allergy Verified 04/06/18 12:19 Review of Systems All other systems reviewed negative except as stated in HPI Physical Exam Vital signs: Vital Signs 04/06/18 16:00 04/06/18 20:00 04/06/18 20:05 Temperature 97.9 F 98.1 F Pulse Rate 69 62 66 Respiratory Rate 14 20 Blood Pressure 136/69 109/60 Pulse Oximetry 98 97 04/06/18 20:15 04/07/18 00:00 04/07/18 03:45 Temperature 97.4 F L Pulse Rate 77 68 Respiratory Rate 20 Blood Pressure 124/68 Pulse Oximetry 97 96 04/07/18 04:00 Temperature 98.3 F Pulse Rate 68 Respiratory Rate 20 Blood Pressure 129/73 Pulse Oximetry 94 L Intake & Output 04/06/18 04/07/18 04/07/18 18:59 06:59 18:59 Intake Total 780 / 780 1060 / 1060 Balance 780 / 780 1060 / 1060 Weight 53.8 kg 53.6 kg Intake: IV 1000 / 1000 NS Inj 1,000 ML @ 80 mls/hr IV. 1000 / 1000 CONT .[id number] [facility]UDILIO Rx#: [id number] Oral 780 / 780 60 / 60 Other: # Voids 3 # Incontinent Voids 1 # Bowel Movements 0 1 Narrative: GENERAL: in NAD, SKIN: Warm and dry. HEAD: Atraumatic. Normocephalic. EYES: Pupils equal and round. No scleral icterus. ENT: No nasal bleeding or discharge. NECK: Trachea midline. No JVD. CARDIOVASCULAR: Regular rate and rhythm. RESPIRATORY: No accessory muscle use. GASTROINTESTINAL: Abdomen soft, non-tender, nondistended. MUSCULOSKELETAL: Extremities without clubbing, cyanosis, or edema. No obvious deformities. NEUROLOGICAL: Awake and alert. Oriented 2-3, remember seeing me yesterday, follows once a motor request, articulate speech, visual colon full left lower facial weakness. Left spastic hemiparesis left upper extremity to 3 out of 5, left lower extremity 2-3 out of 5 able to slightly raise to gravity PSYCHIATRIC: Appropriate mood and affect; insight and judgment normal. - Constitutional no acute distress - Routine HEENT Exam Head: Present: normocephalic Eye: Present: EOMI Objective Laboratory Results - last 24 hr 04/06/18 04/06/18 04/06/18 13:13 13:30 13:30 CBC w Diff WBC RBC Hgb Hct MCV MCH MCHC RDW Plt Count MPV Neut % (Auto) Lymph % (Auto) [place] % (Auto) Eos % (Auto) Baso % (Auto) Neut # (Auto) Lymph # (Auto) [place] # (Auto) Eos # (Auto) Baso # (Auto) WBC Differential Differential Comment Sodium Potassium Chloride Carbon Dioxide Anion Gap BUN Creatinine Estimated GFR Random Glucose Calcium Total Bilirubin AST ALT Alkaline Phosphatase Total Protein Albumin Triglycerides Cholesterol LDL Cholesterol, Calc HDL Cholesterol Cholesterol/HDL Ratio Ur Collection Type Cath Urine Color Yellow Urine Clarity Clear Urine pH 6.0 Ur Specific [place] Less/equal 1.005 Urine Protein Negative Urine Glucose (UA) Negative Urine Ketones Negative Urine Occult Blood Negative Urine Nitrate Positive H Urine Bilirubin Negative Urine Urobilinogen 0.2 Ur Leukocyte Esterase Trace H Urine WBC 0-5 Urine Bacteria Many H Micro UA Comment Cath-culture ind Ur Microscopic Review Microscopic reviewed Urine Culture Comments Cath-cult indicated Urine Opiates Screen Neg Ur Barbiturates Screen Neg Ur Amphetamines Screen Neg U Benzodiazepines Scrn Neg Urine Cocaine Screen Neg U Cannabinoids Screen Neg Blood Type B Positive Antibody Screen Positive Ab Screen Tube Method Positive H Antibody Identification Direct Antiglob Test Negative Crossmatch 04/06/18 04/06/18 04/07/18 18:30 21:32 06:10 CBC w Diff WBC RBC Hgb Hct MCV MCH MCHC RDW Plt Count MPV Neut % (Auto) Lymph % (Auto) [place] % (Auto) Eos % (Auto) Baso % (Auto) Neut # (Auto) Lymph # (Auto) [place] # (Auto) Eos # (Auto) Baso # (Auto) WBC Differential Differential Comment Sodium 143 Potassium 4.1 Chloride 109 H Carbon Dioxide 29.7 Anion Gap 4 L BUN 18 Creatinine 0.93 Estimated GFR 60 L Random Glucose 94 Calcium 8.9 Total Bilirubin 0.5 AST 17 ALT 13 Alkaline Phosphatase 103 Total Protein 6.2 L Albumin 3.5 Triglycerides Cholesterol LDL Cholesterol, Calc HDL Cholesterol Cholesterol/HDL Ratio Ur Collection Type Urine Color Urine Clarity Urine pH Ur Specific [place] Urine Protein Urine Glucose (UA) Urine Ketones Urine Occult Blood Urine Nitrate Urine Bilirubin Urine Urobilinogen Ur Leukocyte Esterase Urine WBC Urine Bacteria Micro UA Comment Ur Microscopic Review Urine Culture Comments Urine Opiates Screen Ur Barbiturates Screen Ur Amphetamines Screen U Benzodiazepines Scrn Urine Cocaine Screen U Cannabinoids Screen Blood Type B Positive Antibody Screen Positive H Ab Screen Tube Method Positive H Antibody Identification Non-Specific Agglutinin Direct Antiglob Test Crossmatch See Detail 04/07/18 04/07/18 06:15 06:15 CBC w Diff Auto diff final WBC 6.6 RBC 4.14 Hgb 12.4 Hct 38.2 MCV 92.4 MCH 30.0 MCHC 32.5 RDW 11.5 L Plt Count 140 L MPV 7.7 Neut % (Auto) 65.9 Lymph % (Auto) 28.9 [place] % (Auto) 4.4 Eos % (Auto) 0.7 Baso % (Auto) 0.1 Neut # (Auto) 4.4 Lymph # (Auto) 1.9 [place] # (Auto) 0.3 Eos # (Auto) 0.0 Baso # (Auto) 0.0 WBC Differential . Differential Comment . Sodium Potassium Chloride Carbon Dioxide Anion Gap BUN Creatinine Estimated GFR Random Glucose Calcium Total Bilirubin AST ALT Alkaline Phosphatase Total Protein Albumin Triglycerides 51 Cholesterol 136 LDL Cholesterol, Calc 61 HDL Cholesterol 65.3 H Cholesterol/HDL Ratio 2.08 Ur Collection Type Urine Color Urine Clarity Urine pH Ur Specific [place] Urine Protein Urine Glucose (UA) Urine Ketones Urine Occult Blood Urine Nitrate Urine Bilirubin Urine Urobilinogen Ur Leukocyte Esterase Urine WBC Urine Bacteria Micro UA Comment Ur Microscopic Review Urine Culture Comments Urine Opiates Screen Ur Barbiturates Screen Ur Amphetamines Screen U Benzodiazepines Scrn Urine Cocaine Screen U Cannabinoids Screen Blood Type Antibody Screen Ab Screen Tube Method Antibody Identification Direct Antiglob Test Crossmatch Microbiology 04/06/18 13:30 Urine Culture - Preliminary Clean Catch Urine gram negative rods Review/Management - Diagnosis (1) Acute right MCA stroke Code(s): I63.511 - Cerebral infarction due to unspecified occlusion or stenosis of right middle cerebral artery Status: Acute Current Visit: Yes (2) Pulmonary embolus Code(s): I26.99 - Other pulmonary embolism without acute cor pulmonale Status : Acute Current Visit: Yes (3) Anxiety Code(s): F41.9 - Anxiety disorder, unspecified Status: Acute Current Visit: Yes (4) Impairment of cognitive function Code(s): R41.89 - Other symptoms and signs involving cognitive functions and awareness Status: Acute Current Visit: Yes (5) Chronic ischemic right MCA stroke Code(s): I69.30 - Unspecified sequelae of cerebral infarction Status: Acute Current Visit: Yes - Review/Management Plan: Acute on chronic right hemispheric stroke Moderate size previous right MCA stroke in addition to chronic left medial temporal region infarct. CT brain carotids negative for any vaso-occlusive disease. Therefore probably an embolic etiology. Recurrent stroke on Xarelto Recommendations Neuro stable On Eliquis tolerating Therapy Follow-up 2D echo; EF in range Follow-up lipid panel; an excellent range Would benefit from inpatient rehab
[2018-04-08] MEDS: Sod Chloride 0.9% Inj 1,000 ML IV.CONT SCH ×3 (06:13→19:37)
[2018-04-08] MEDS: Escitalopram 10 MG Tablet PO SCH (08:35)
[2018-04-08] MEDS: Polyethylene Glycol 3350 17 GM Packet PO SCH (08:36)
--- NOTE | 2018-04-08 09:52 | P.DS ---
DS: Providers Date of admission: 04/06/18 13:30 Primary care physician: UNKNOWN Consults: 04/06/18 12:20 Consult to Neurology Stat Consulting Provider: Malik Mcclure For STAT consult, spoke directly to:: dr flores Reason for Consultation: Brain Attack Notified:: Office Spoke with:: Twyla Date Notified:: 04/06/18 Time Notified:: 12:47 Ordering Provider: NGUYEN Brief History from admission: Mrs. Sam is a 67-year-old female. At baseline she lives at an [facility]. She has a prior history of CVA with left-sided deficit. Today she came in due to an acute onset of left facial weakness which was not present the previous days. At baseline she is on Xarelto for history of pulmonary embolism. She complains of no headache. No nausea or vomiting. No vertigo. No diarrhea. No fever. No shortness of breath. No chest pain. No visual disturbances. CT scan of the brain shows evidence of right-sided cerebral edema, MRI recommended. DS: Diagnosis Discharge Diagnosis (1) Acute right MCA stroke: Status: Acute (2) Pulmonary embolus: Status: Acute (3) Anxiety: Status: Acute (4) Impairment of cognitive function: Status: Acute (5) Chronic ischemic right MCA stroke: Status: Acute DS: Summary Mrs. Sam is a 67-year-old female. She has a past history of CVA on the right side. This has caused a chronic left hemiplegia. She came in secondary to left facial droop and worsening of her left hemiplegia. Imaging shows new infarct on the right side. She had previously been on aspirin and Xarelto. Xarelto is now discontinued and she started on Eliquis. Physical therapy evaluation has recommended inpatient rehab. Patient is medically stable and cleared by neurology and medicine for discharge today. She will discharge to a residential facility to continue rehabilitation. She will discharged on Eliquis and aspirin. Time Spent with Patient Total time spent providing and/or coordinating discharge services: Quality: Stroke Last date observed well: 04/06/18 Quality: VTE Deep Vein Thrombosis/Pulmonary Embolism Present on Admission: No Results Labs on day of discharge: Labs from last 24 hours 04/07/18 04/07/18 04/07/18 16:17 08:40 06:15 POC Glucose 92 Hemoglobin A1c Triglycerides 51 Cholesterol 136 LDL Cholesterol, Calc 61 HDL Cholesterol 65.3 H Cholesterol/HDL Ratio 2.08 Ur Collection Type Urine Color Urine Clarity Urine pH Ur Specific [place] Urine Protein Urine Glucose (UA) Urine Ketones Urine Occult Blood Urine Nitrate Urine Bilirubin Urine Urobilinogen Ur Leukocyte Esterase Urine WBC Urine Bacteria Micro UA Comment Ur Microscopic Review Urine Culture Comments Blood Type B Positive Antibody Screen Positive H Ab Screen Tube Method Positive H Prewarmed Antibody Srcn Negative Antibody Identification Crossmatch Prewarmed See Detail Bld Prod Order Comment 04/06/18 04/06/18 04/06/18 21:32 19:09 13:30 POC Glucose Hemoglobin A1c 5.1 Triglycerides Cholesterol LDL Cholesterol, Calc HDL Cholesterol Cholesterol/HDL Ratio Ur Collection Type Cath Urine Color Yellow Urine Clarity Clear Urine pH 6.0 Ur Specific [place] Less/equal 1.005 Urine Protein Negative Urine Glucose (UA) Negative Urine Ketones Negative Urine Occult Blood Negative Urine Nitrate Positive H Urine Bilirubin Negative Urine Urobilinogen 0.2 Ur Leukocyte Esterase Trace H Urine WBC 0-5 Urine Bacteria Many H Micro UA Comment Cath-culture ind Ur Microscopic Review Microscopic reviewed Urine Culture Comments Cath-cult indicated Blood Type Antibody Screen Ab Screen Tube Method Prewarmed Antibody Srcn Antibody Identification Strong Non-Specific Cold Agg Crossmatch Prewarmed Bld Prod Order Comment Impressions ITS Impressions Head CT 04/06/18 12:20 CONCLUSION: 1. No focal or acute intracranial hemorrhage. 2. There is some encephalomalacia with some cytotoxic edema in the white matter tracts involving the right frontal lobe and right mid to right posterior cerebral vertex suggestive of a subacute to possibly old infarct. There are no prior studies for comparison. Recommend MRI of the brain with and without contrast for further evaluation. Report was called by Dr. Gandara to Dr. Toney at 12:31 PM Head MRI 04/06/18 12:38 CONCLUSION: 1. There is evidence of an acute infarction involving the mid to anterior right cerebral vertex measuring 3.3 x 2.6 cm. The acute infarction is surrounded by cytotoxic edema. 2. 5 mm area of restricted diffusion high along the right cerebral vertex indicating a small cortical infarct. 3. Evidence of an old infarct involving the right posterior parietal lobe. Head CTA 04/06/18 13:35 CONCLUSION: 1. Unremarkable CTA of the brain. Report was called by Dr. Gandara to Dr. Flores at 2:06 PM. Neck CTA 04/06/18 13:35 CONCLUSION: 1. Unremarkable CTA of the carotids. Report was called by Dr. Gandara to Dr. Flores at 2:20 PM. Discharge Plan Discharge Disposition Patient Disposition: Discharge to SNF Discharge Condition Condition: Stable Discharge Order Discharge Orders: Discharge Order (Routine); Ordered 04/08/18 Ordered By: Conrad Fernandez Discharge Details Anticipated Discharge Date: 04/08/18 Physicians Team Primary Care Provider: UNKNOWN, Attending Provider: Conrad Fernandez Other Providers: Malik Mcclure Rxs /Orders / Referrals /Forms Prescriptions: New apixaban [Eliquis] 5 mg Tablet 5 mg PO BID Qty: 60 RF: 0 Continue aspirin 81 mg Tablet,Delayed Release (Dr/Ec) 81 mg PO DAILY RF: 0 pravastatin 80 mg Tablet 80 mg PO DAILY RF: 0 memantine 10 mg Tablet 10 mg PO BID RF: 0 escitalopram oxalate 5 mg Tablet 5 mg PO DAILY RF: 0 polyethylene glycol 3350 8.5 gram Powder In Packet 17 g PO DAILY RF: 0 Discontinued rivaroxaban [Xarelto] 20 mg Tablet 20 mg PO QPM RF: 0 Referrals: UNKNOWN, [Primary Care Provider] - See Instructions (PLEASE CALL [facility] FOR F/U AFTER THE WEEKEND AND HOLIDAY, IF YOU DO NOT HAVE A PCP MD CALL YOUR INSURANCE AT , THEY WILL ASSIST YOU WITH A LIST OF PROVIDERS IN YOUR AREA) Status ED Status: Left Department
[2018-04-09 08:12] VITALS: PULSE 64; RESP 18; TEMP 97.3
[2018-04-09] MEDS: Escitalopram 10 MG Tablet PO SCH (08:51)
[2018-04-09] MEDS: Polyethylene Glycol 3350 17 GM Packet PO SCH (08:52)
[2018-04-09 11:49] VITALS: BP 105/71; O2SAT 96
--- NOTE | 2018-04-09 12:07 | P.PNIM ---
Subjective Interval history: [facility] Awaiting placement. Physical Exam Vital signs: Vital Signs 04/08/18 16:00 04/08/18 20:00 04/09/18 00:00 Temperature 96.4 F L 97.0 F L 97.9 F Pulse Rate 66 66 65 Respiratory Rate 20 16 16 Blood Pressure 113/59 L 113/56 L 129/68 Pulse Oximetry 97 98 98 04/09/18 08:00 04/09/18 11:48 Temperature 97.3 F L Pulse Rate 64 64 Respiratory Rate 18 18 Blood Pressure 146/71 H 105/71 Pulse Oximetry 98 96 Intake & Output 04/08/18 04/09/18 04/09/18 18:59 06:59 18:59 Intake Total 200 / 200 200 / 200 500 / 500 Output Total 400 / 400 600 / 600 Balance -200 / -200 -400 / -400 500 / 500 Weight 53.1 kg Intake: IV 500 / 500 NS Inj 1,000 ML @ 80 mls/hr IV. 500 / 500 CONT .[id number] [facility]UDILIO Rx#: [id number] Oral 200 / 200 Oral Supplement 200 / 200 Output: Urine 400 / 400 600 / 600 Other: Date of Last Bowel Movement 04/07/18 04/07/18 04/07/18 # Bowel Movements 2 Narrative: GENERAL: NAD, A&Ox3 HEAD: Normocephalic. NECK: Supple, trachea midline. No lymphadenopathy. EYES: No scleral icterus. No injection or drainage. CARDIOVASCULAR: Regular rate and rhythm without murmurs, gallops, or rubs. RESPIRATORY: Breath sounds equal bilaterally. No accessory muscle use. GASTROINTESTINAL: Abdomen soft, non-tender, nondistended. MUSCULOSKELETAL: No cyanosis, or edema. SKIN: Warm and dry. NEURO: Partial left-sided hemiplegia. Left face droop. Results Labs CBC & Chem 7: 04/07/18 06:15 04/07/18 06:10 Labs: Microbiology 04/06/18 13:30 Clean Catch Urine Urine Culture - Final Escherichia coli Assessment and Plan (1) Acute right MCA stroke: Code(s): I63.511 - Cerebral infarction due to unspecified occlusion or stenosis of right middle cerebral artery Status: Acute (2) Pulmonary embolus: Code(s): I26.99 - Other pulmonary embolism without acute cor pulmonale Status: Acute (3) Anxiety: Code(s): F41.9 - Anxiety disorder, unspecified Status: Acute (4) Impairment of cognitive function: Code(s): R41.89 - Other symptoms and signs involving cognitive functions and awareness Status: Acute (5) Chronic ischemic right MCA stroke: Code(s): I69.30 - Unspecified sequelae of cerebral infarction Status: Acute Plan 67-year-old female admitted secondary to acute onset of left facial weakness with evidence for CVA on CT scan. No acute changes. Awaiting placement. [facility] Acute CVA Suspected based on edema on CT scan Neurology consulted Obtain MRI Follow neurologic status Speech therapy evaluation Swallow function evaluation Physical therapy Occupational Therapy Hypercoagulability History of pulmonary embolism No evidence of bleed/hemorrhage on CT of brain Continue Eliquis Hyperlipidemia Continue present treatment Follow as an outpatient Dementia Memantine continued Supportive care DVT prophylaxis Xarelto Progress Note: Quality VTE Deep Vein Thrombosis/Pulmonary Embolism Present on Admission: No _ (1) Pulmonary embolus Qualifiers: Pulmonary embolism type: Chronicity: Acute cor pulmonale presence:
== END 2018-04-09 14:15 | DRG 64 ==
LOC: PHED 12:15 → PHEDA 13:30 → PH3 14:45
PROVIDERS: ADMIT Hospitalist; ATTEND Hospitalist
DX: R47.81 Slurred speech; G93.6 Cerebral edema; F03.90 Unspecified dementia, unspecified severity, without behavioral disturbance, psychotic disturbance, mood disturbance, and anxiety; Z23 Encounter for immunization; I63.511 Cerebral infarction due to unspecified occlusion or stenosis of right middle cerebral artery; E78.5 Hyperlipidemia, unspecified; F41.9 Anxiety disorder, unspecified; R29.810 Facial weakness; Z79.01 Long term (current) use of anticoagulants; I69.354 Hemiplegia and hemiparesis following cerebral infarction affecting left non-dominant side; Z86.711 Personal history of pulmonary embolism
CPT/HCPCS: 70450; 70496; 70498; 70553; 80048; 80053; 80061; 80307; 81001; 82550; 82948; 82962; 83036; 84484; 85025; 85384; 85610; 85730; 86077; 86850; 86870; 86880; 86900; 86901; 86920; 86921; 86922; 87077; 87086; 87186; 90471; 90658; 90686; 92526; 92610; 93005; 93306; 97162; 97167; 99285; A9585; G0008; G0195; J7030; Q2038; Q9967